=== PATIENT | male | born 1945 ===

== ENCOUNTER → 2021-01-25 | Outpatient (REF) | LOC: M LAB LCGH 09:20 | PROVIDERS: ATTEND Physician Assistant | DX: Z13.9 Encounter for screening, unspecified (principal) ==

== ENCOUNTER → 2022-06-19 | Outpatient (REF) | payer MEDICARE | LOC: M SFHCDERM 17:13 | PROVIDERS: ATTEND Physician Assistant | DX: C44.229 Squamous cell carcinoma of skin of left ear and external auricular canal (principal) ==